=== PATIENT | male | born 1955 | race Caucasian/White ===

== ENCOUNTER 2020-02-03 22:57 | Emergency (ER) | payer OTHER ==
[~2020-02-03] VITALS: Ht 177.8 cm; Wt 83.9 kg
[~2020-02-03 22:57] MED LIST: MAXIMUM DAILY1 EACH; RAPAFLO4 MG; VYTORIN 10-20 M1 TAB
[2020-02-04] MEDS ORDERED: ZETIA10 MG (00:05)
[2020-02-04] MEDS ORDERED: CRESTOR10 MG (00:05)
[2020-02-04] MEDS ORDERED: RAPAFLO8 MG (00:06)
== END 2020-02-04 11:08 | disposition home or self-care (01) ==
LOC: ER 22:57
DX: N13.5 Crossing vessel and stricture of ureter without hydronephrosis (principal); N20.0 Calculus of kidney; R10.11 Right upper quadrant pain